=== PATIENT | male | born 1965 | race American Indian/Alaskan Native ===

== ENCOUNTER 2020-09-16 09:11 | Emergency (ER) | payer MEDICARE ==
[2020-09-16 09:21] VITALS: BP 140/83
--- NOTE | 2020-09-16 10:03 | Emergency Department Report ---
ED ENT HPI - General Chief complaint: Earache Stated complaint: RT EAR BLEEDING Time Seen by Provider: 09/16/20 09:59 Source: patient Mode of arrival: Ambulatory Limitations: No Limitations - History of Present Illness Initial comments: The patient was evaluated in the emergency department for symptoms described in the history of present illness. He/she was evaluated in the context of the global COVID-19 pandemic, which necessitated consideration that the patient might be at risk for infection with the virus that causes COVID-19. Institutional protocols and algorithms that pertain to the evaluation of patients at risk for COVID-19 are in a state of rapid change based on information released by regulatory bodies including the CDC and federal and state organizations. These policies and algorithms were followed during the patient's care in the emergency department. Please note that these policies, procedures and recommendations changed on a rapid basis. 55-year-old -[place] male presents to the emergency room states that he woke up this morning with decreased hearing in his right ear and bleeding. Patient denies any pain denies any trauma to his ear. Patient does not have a primary care provider at this time. [place] any fever chills no chest pain no shortness of breath. Past medical history of seizures removal of half the left lung a craniotomy for brain tumor. MD complaint: other (Decreased hearing and bleeding from right ear) -: This morning Location: R ear Severity: mild Severity scale (0 -10): 0 Improves with: none Worsens with: none Associated Symptoms: discharge from ear (Blood). denies: fever, pain with swallowing - Related Data Previous Rx's Medication Instructions Recorded Last Taken Type Ibuprofen [Motrin] 800 mg PO Q8H #30 tablet 09/09/14 Unknown Rx traMADoL [Ultram 50 MG tab] 50 mg PO Q6HR PRN #20 tablet 09/09/14 Unknown Rx Cyclobenzaprine [Flexeril 10mg] 10 mg PO Q6H PRN #21 tablet 12/29/14 Unknown Rx HYDROcodone/APAP 5-325 [[place] 1 each PO Q6HR PRN #16 tablet 12/29/14 Unknown Rx 5-325 mg TAB] Allergies Allergy/AdvReac Type Severity Reaction Status Date / Time No Known Allergies Allergy Unverified 09/09/14 10:49 ED Dental HPI - General Chief complaint: Earache Stated complaint: RT EAR BLEEDING Time Seen by Provider: 09/16/20 09:59 Source: patient Mode of arrival: Ambulatory Limitations: No Limitations - Related Data Previous Rx's Medication Instructions Recorded Last Taken Type Ibuprofen [Motrin] 800 mg PO Q8H #30 tablet 09/09/14 Unknown Rx traMADoL [Ultram 50 MG tab] 50 mg PO Q6HR PRN #20 tablet 09/09/14 Unknown Rx Cyclobenzaprine [Flexeril 10mg] 10 mg PO Q6H PRN #21 tablet 12/29/14 Unknown Rx HYDROcodone/APAP 5-325 [[place] 1 each PO Q6HR PRN #16 tablet 12/29/14 Unknown Rx 5-325 mg TAB] Allergies Allergy/AdvReac Type Severity Reaction Status Date / Time No Known Allergies Allergy Unverified 09/09/14 10:49 ED Review of Systems ROS: Stated complaint: RT EAR BLEEDING Other details as noted in HPI Comment: All other systems reviewed and negative ED Past Medical Hx - Past Medical History Previous Medical History?: Yes Hx Seizures: Yes - Surgical History Past Surgical History?: Yes Additional Surgical History: Removed 1/2 left lung. Craniotomy for Brain tumor. - Social History Smoking Status: Never Smoker Substance Use Type: Alcohol - Medications Home Medications: Home Medications Medication Instructions Recorded Confirmed Last Taken Type Ibuprofen [Motrin] 800 mg PO Q8H #30 tablet 09/09/14 Unknown Rx traMADoL [Ultram 50 MG tab] 50 mg PO Q6HR PRN #20 tablet 09/09/14 Unknown Rx Cyclobenzaprine [Flexeril 10mg] 10 mg PO Q6H PRN #21 tablet 12/29/14 Unknown Rx HYDROcodone/APAP 5-325 [[place] 1 each PO Q6HR PRN #16 tablet 12/29/14 Unknown Rx 5-325 mg TAB] ED Physical Exam - General Limitations: No Limitations General appearance: alert, in no apparent distress - Head Head exam: Present: atraumatic, normocephalic - Eye Eye exam: Present: normal appearance - Expanded ENT Exam Expanded TM/Canal exam: Canal Discharge: Right TM (Blood) - Neck Neck exam: Present: normal inspection, full ROM - Respiratory Respiratory exam: Absent: accessory muscle use - Extremities Exam Extremities exam: Present: normal inspection, full ROM - Back Exam Back exam: Present: normal inspection - Neurological Exam Neurological exam: Present: alert, oriented X3, normal gait - Psychiatric Psychiatric exam: Present: normal affect, normal mood - Skin Skin exam: Present: warm, dry, intact, normal color. Absent: rash ED Course Vital Signs 09/16/20 09:18 Temperature 98.1 F Pulse Rate 52 L Respiratory 16 Rate Blood Pressure 140/83 O2 Sat by Pulse 100 Oximetry ED Medical Decision Making - Medical Decision Making 55-year-old -[place] male presents to the emergency room states that he woke up this morning with decreased hearing in his right ear and bleeding. Patient denies any pain denies any trauma to his ear. Patient does not have a primary care provider at this time. [place] any fever chills no chest pain no shortness of breath. Past medical history of seizures removal of half the left lung a craniotomy for brain tumor. Spoke to Dr. Alex Liu stock receiver office they states that they are able to see him now. Patient will be discharged to follow-up with stock receiver. Critical care attestation.: If time is entered above; I have spent that time in minutes in the direct care of this critically ill patient, excluding procedure time. ED Disposition Clinical Impression: Bleeding from right ear Disposition: DC-01 TO HOME OR SELFCARE Is pt being admited?: No Does the pt Need Aspirin: No Condition: Stable Additional Instructions: Please go directly to Dr. Liu office he is aware of you coming to be evaluated. Referrals: ALEX LIU MD [Staff Physician] - 3-5 Days
== END 2020-09-16 10:05 | disposition home or self-care (01) ==
LOC: ED 09:11
DX: H92.21 Otorrhagia, right ear (principal); R56.9 Unspecified convulsions; Z98.890 Other specified postprocedural states; Z79.1 Long term (current) use of non-steroidal anti-inflammatories (NSAID); Z79.899 Other long term (current) drug therapy
CPT/HCPCS: 99282

== ENCOUNTER 2020-10-17 02:05 | Emergency (ER) | payer MEDICARE ==
--- NOTE | 2020-10-17 04:22 | Emergency Department Report ---
ED General Adult HPI - General Chief complaint: Pain General Stated complaint: DIZZINESS,NECK PAIN Time Seen by Provider: 10/17/20 03:21 Source: patient Mode of arrival: Ambulatory Limitations: No Limitations - History of Present Illness Initial comments: 55-year-old -[place] male patient presents with complaints of left-sided neck pain that worsens with movement and swallowing x yesterday. He denies any trauma to his neck, fever/chills/sweats, nausea/vomiting, cough, shortness of breath, numbness/tingling/weakness in his limbs, or back pain. Patient rates his current pain as a 7/10 in severity and describes it as a tightness. Pain does improve with Aleve. Severity scale (0 -10): 0 - Related Data Previous Rx's Medication Instructions Recorded Last Taken Type Ibuprofen [Motrin] 800 mg PO Q8H #30 tablet 09/09/14 Unknown Rx traMADoL [Ultram 50 MG tab] 50 mg PO Q6HR PRN #20 tablet 09/09/14 Unknown Rx Cyclobenzaprine [Flexeril 10mg] 10 mg PO Q6H PRN #21 tablet 12/29/14 Unknown Rx HYDROcodone/APAP 5-325 [[place] 1 each PO Q6HR PRN #16 tablet 12/29/14 Unknown Rx 5-325 mg TAB] Diclofenac Sodium 50 mg PO TID PRN 7 Days #21 10/17/20 Unknown Rx tablet. methOCARBAMOL [Robaxin TAB] 1,500 mg PO Q8H PRN #20 tablet 10/17/20 Unknown Rx Allergies Allergy/AdvReac Type Severity Reaction Status Date / Time No Known Allergies Allergy Unverified 09/09/14 10:49 ED Review of Systems ROS: Stated complaint: DIZZINESS,NECK PAIN Other details as noted in HPI Constitutional: denies: chills, diaphoresis, fever, malaise, weakness ENT: as per HPI Respiratory: denies: cough, shortness of breath Cardiovascular: denies: chest pain Gastrointestinal: denies: abdominal pain, nausea, vomiting Neurological: denies: headache, numbness, paresthesias, abnormal gait Hematological/Lymphatic: denies: swollen glands ED Past Medical Hx - Past Medical History Hx Seizures: Yes - Surgical History Additional Surgical History: Removed 1/2 left lung. Craniotomy for Brain tumor. - Social History Smoking Status: Never Smoker Substance Use Type: Alcohol - Medications Home Medications: Home Medications Medication Instructions Recorded Confirmed Last Taken Type Ibuprofen [Motrin] 800 mg PO Q8H #30 tablet 09/09/14 Unknown Rx traMADoL [Ultram 50 MG tab] 50 mg PO Q6HR PRN #20 tablet 09/09/14 Unknown Rx Cyclobenzaprine [Flexeril 10mg] 10 mg PO Q6H PRN #21 tablet 12/29/14 Unknown Rx HYDROcodone/APAP 5-325 [[place] 1 each PO Q6HR PRN #16 tablet 12/29/14 Unknown Rx 5-325 mg TAB] Diclofenac Sodium 50 mg PO TID PRN 7 Days #21 10/17/20 Unknown Rx tablet. methOCARBAMOL [Robaxin TAB] 1,500 mg PO Q8H PRN #20 tablet 10/17/20 Unknown Rx ED Physical Exam - General Limitations: No Limitations General appearance: alert, in no apparent distress - Head Head exam: Present: atraumatic, normocephalic - Eye Eye exam: Present: normal appearance. Absent: scleral icterus - ENT ENT exam: Present: normal orophraynx - Neck Neck exam: Present: tenderness (Tenderness to palpation noted to the left trapezius muscle without vertebral tenderness or obvious deformity noted), full ROM. Absent: meningismus, lymphadenopathy, thyromegaly - Respiratory Respiratory exam: Present: normal lung sounds bilaterally. Absent: respiratory distress - Cardiovascular Cardiovascular Exam: Present: regular rate - Back Exam Back exam: Present: normal inspection, full ROM - Neurological Exam Neurological exam: Present: alert, oriented X3, normal gait - Psychiatric Psychiatric exam: Present: normal affect, normal mood - Skin Skin exam: Present: warm, dry, intact, normal color. Absent: rash, diaphoretic, erythema, pallor ED Course Vital Signs 10/17/20 02:18 Temperature 99.2 F Pulse Rate 89 Respiratory 16 Rate Blood Pressure 139/79 [Right] O2 Sat by Pulse 99 Oximetry ED Medical Decision Making - Medical Decision Making 55-year-old -[place] male patient presents with complaints of left-sided neck pain that worsens with movement and swallowing x yesterday. He denies any trauma to his neck, fever/chills/sweats, nausea/vomiting, cough, shortness of breath, numbness/tingling/weakness in his limbs, or back pain. Patient rates his current pain as a 7/10 in severity and describes it as a tightness. Pain does improve with Aleve. On exam, he has tenderness to palpation over the left trapezius muscle and normal range of motion of the neck. Throat exam is normal. Suspect muscle spasm. Prescription for Robaxin and diclofenac given. His vitals are normal, he is well-appearing, he is stable for discharge home. Recommend follow-up with PCP in 3 days. Strict return precautions were discussed in detail with patient who verbalizes understanding. Critical care attestation.: If time is entered above; I have spent that time in minutes in the direct care of this critically ill patient, excluding procedure time. ED Disposition Clinical Impression: Muscle spasms of neck Disposition: DC- TO HOME OR SELFCARE Is pt being admited?: No Condition: Stable Instructions: Muscle Cramps and Spasms, Cervical Strain and Sprain Rehab- [facility] Prescriptions: Diclofenac Sodium 50 mg PO TID PRN 7 Days #21 tablet. PRN Reason: pain methOCARBAMOL [Robaxin TAB] 1,500 mg PO Q8H PRN #20 tablet PRN Reason: Muscle spasm/tightness Referrals: DOMINGA VÁZQUEZ MD [Primary Care Provider] - 3-5 Days
[2020-10-17 05:09] VITALS: BP 120/80
== END 2020-10-17 05:08 | disposition home or self-care (01) ==
LOC: ED 02:05
DX: M62.838 Other muscle spasm (principal); Z79.899 Other long term (current) drug therapy; Z98.890 Other specified postprocedural states; Z86.69 Personal history of other diseases of the nervous system and sense organs
CPT/HCPCS: 99282